=== PATIENT | male | born 1955 | race Caucasian/White ===

== ENCOUNTER 2021-10-29 12:08 | Emergency (ER) | payer OTHER ==
[~2021-10-29] VITALS: Ht 182.9 cm; Wt 65.5 kg
[2021-10-29 12:24] VITALS: BP 102/60
[2021-10-29] MEDS ORDERED: ONDANSETRON PF 4 MG/2 ML VIAL. IVP ONE ×2 (12:30→14:15)
[2021-10-29] MEDS ORDERED: IV NORMAL SALINE 1,000ML 1,000 ML IV SCH (12:30)
[2021-10-29] MEDS ORDERED: CONTRAST GIVEN. MC PRN (12:30)
[2021-10-29] MEDS ORDERED: IOHEXOL 300 MG/ML 75 ML VIAL. IV ONE (12:30)
[2021-10-29 12:39] LABS: BASO # 0.1 x10^3/uL (0.0-0.2); BASO % 1 % (0-3); EOS % 0 % (0-3); HEMATOCRIT 31.4 % (39.0-53.0); HEMOGLOBIN 10.3 g/dL (13.0-17.5); LYMPH # 0.8 x10^3/uL (1.0-4.8); LYMPH % 6 % (24-48); MEAN CORPUSCULAR HEMOGLOBIN 31 pg (25-35); MEAN CORPUSCULAR HGB CONC 33 g/dL (31-37); MEAN CORPUSCULAR VOLUME 95 fL (79-100); MONO % 7 % (0-9); NEUT # 12.6 x10^3uL (1.8-7.7); NEUT % 87 % (31-73); PLATELET COUNT 524 x10^3/uL (140-400); RED CELL DISTRIBUTION WIDTH 14.5 % (11.5-14.5); WHITE BLOOD COUNT 14.5 x10^3/uL (4.0-11.0)
--- NOTE | 2021-10-29 12:39 | PHYS DOC ---
General Adult EDM: Chief Complaint: ABDOMINAL PAIN HPI: HPI: Patient is a 65-year-old male who presents to the emergency department for umbilical abdominal pain that started this morning. He rates his pain 2 out of 10 and describes it as a cramping pain. Patient reports that he is also experiencing lightheadedness that is worse with position changes and nausea and vomiting. Patient reports that he vomited 2 times today. He was discharged from the [facility] on October 04 for urinary tract infection and was discharged with a Cedeno catheter because he was unable to urinate. Patient reports that the Cedeno catheter was placed on October 01. Patient reports that when they placed his colostomy in 2010 due to his rectal cancer they cut his ureter and he does have a history of urinary retention. Patient reports that his rectal cancer is in remission. He denies any changes in the consistency of his output in his colostomy bag reports that it is decreased than what it normally is but he is reported that he has got decreased appetite. He denies diarrhea or blood in his stools or vomit, dysuria. He denies any chest pain or shortness of breath. Review of Systems: Review of Systems: Respiratory: See HPI Cardiovascular: See HPI GI: See HPI : See HPI Neurologic: See HPI Current Medications: Current Meds: Current Medications Medications (Trade) Dose Ordered Sig/Julian Start Time Stop Time Status Last Admin Dose Admin Ondansetron HCl (Zofran) 4 mg 1X ONCE 10/29/21 12:30 10/29/21 12:31 UNV Sodium Chloride 1,000 ml @ 1,000 mls/hr Q1H 10/29/21 12:30 10/29/21 13:29 UNV Physical Exam: PE: Constitutional: Well developed, well nourished, no acute distress, non-toxic christian earance. [] HENT: Normocephalic, atraumatic, bilateral external ears normal, oropharynx moist, no oral exudates, nose normal. [] Eyes: PERRL, EOMI, conjunctiva normal, no discharge. [] Neck: Normal range of motion, no stridor Cardiovascular:Heart rate regular rhythm, no murmur [] Lungs & Thorax: Bilateral breath sounds clear to auscultation [] Abdomen: Bowel sounds normal, soft, no tenderness, no masses, colostomy bag noted, no signs of infection surrounding stoma, there is a small amount of output in colostomy bag, no abdominal rigidity or guarding, negative Moore sign, no pulsatile masses. [] Skin: Warm, dry, no erythema, no rash. [] Back: No tenderness, normal range of motion Extremities: No tenderness, no cyanosis, no clubbing, ROM intact, no edema. [] Neurologic: Alert and oriented X 3, normal motor function, normal sensory function, no focal deficits noted. [] Psychologic: Affect normal, judgement normal, mood normal. [] Current Patient Data: Labs: Laboratory Tests Test 10/29/21 12:20 White Blood Count 14.5 x10^3/uL Red Blood Count 3.30 x10^6/uL Hemoglobin 10.3 g/dL Hematocrit 31.4 % Mean Corpuscular Volume 95 fL Mean Corpuscular Hemoglobin 31 pg Mean Corpuscular Hemoglobin Concent 33 g/dL Red Cell Distribution Width 14.5 % Platelet Count 524 x10^3/uL Neutrophils (%) (Auto) 87 % Lymphocytes (%) (Auto) 6 % Monocytes (%) (Auto) 7 % Eosinophils (%) (Auto) 0 % Basophils (%) (Auto) 1 % Neutrophils # (Auto) 12.6 x10^3uL Lymphocytes # (Auto) 0.8 x10^3/uL Monocytes # (Auto) 1.0 x10^3/uL Eosinophils # (Auto) 0.0 x10^3/uL Basophils # (Auto) 0.1 x10^3/uL Platelet Estimate Pending Sodium Level 134 mmol/L Potassium Level 4.5 mmol/L Chloride Level 96 mmol/L Carbon Dioxide Level 25 mmol/L Anion Gap 13 Blood Urea Nitrogen 66 mg/dL Creatinine 2.4 mg/dL Estimated GFR (Cockcroft-Gault) 27.5 BUN/Creatinine Ratio 28 Glucose Level 143 mg/dL Calcium Level 9.0 mg/dL Total Bilirubin 0.3 mg/dL Aspartate Amino Transf (AST/SGOT) 17 U/L Alanine Aminotransferase (ALT/SGPT) 27 U/L Alkaline Phosphatase 64 U/L Troponin I High Sensitivity 10 ng/L Total Protein 6.2 g/dL Albumin 2.4 g/dL Albumin/Globulin Ratio 0.6 Lipase 36 U/L Current Medications Medications (Trade) Dose Ordered Sig/Julian Route PRN Reason Start Time Stop Time Status Last Admin Dose Admin Sodium Chloride 1,000 ml @ 1,000 mls/hr Q1H IV 10/29/21 12:30 10/29/21 13:29 DC 10/29/21 12:36 Ondansetron HCl (Zofran) 4 mg 1X ONCE IVP 10/29/21 12:30 10/29/21 12:31 DC Iohexol (Omnipaque 300 Mg/ml) 75 ml 1X ONCE IV 10/29/21 12:30 10/29/21 12:31 DC 10/29/21 12:49 Info (Do NOT chart on this entry -- for MONITORING) 1 each PRN DAILY PRN MC SEE COMMENTS 10/29/21 12:30 10/31/21 12:29 EKG: EKG: [] EKG performed by ER staff at 1231 shows sinus tachycardia with a rate of 115, QTC is 444, no STEMI read by Dr. Chen at 1235. Radiology/Procedures: Radiology/Procedures: []PROCEDURE: CT ANGIO CHEST ABD PELVIS CTA CHEST_ABDOMEN_AND PELVIS History: Umbilical pain, history of colostomy, rectal cancer, hernia, hypotension. Comparison: None. Technique: CT angiogram of the chest, abdomen and pelvis with intravenous contrast. 3-D postprocessing performed with coronal, sagittal and rotating MIPS Findings: The thoracic aorta is normal in caliber measuring 3.1 cm at the proximal ascending. Normal three-vessel morphology. There is a linear filling defect in the left subclavian artery just proximal to passing over the first rib which causes approximately 50 percent stenosis (axial image 21, coronal 27). Mild atherosclerotic calcification in the aortic arch. No aortic dissection or aneurysm. The abdominal aorta is normal in caliber measuring 2.2 cm at the hiatus. Patent origins of the celiac, superior mesenteric, renal arteries and inferior mesenteric artery. The bilateral and common iliac arteries are patent. There is moderate atherosclerosis of the bilateral common iliac arteries and left external iliac artery. Bilateral common femoral, deep and superficial femoral arteries are patent. Thyroid and mediastinum are within normal limits. The heart size is normal. Trace pericardial fluid. Thickening of the distal esophagus with small sliding hiatal hernia. The central airways are patent. There are moderate to severe emphysematous changes with large right greater than left apical blebs. Bilateral peripheral groundglass opacities. Right lower lobe pulmonary nodule measuring 1.2 cm x 0.7 cm. No pleural effusion or pneumothorax. Multiple subcentimeter hypodensities in liver too small to characterize. Gallbladder is unremarkable. The pancreas, spleen and adrenal glands are unremarkable. There is right renal atrophy. Bilateral renal cysts. No hydronephrosis. The bladder is decompressed by Cedeno catheter. Small hiatal hernia as above. The proximal small bowel is unremarkable. There is a left lower quadrant peristomal hernia with a focally dilated small bowel loop. No evidence of small bowel obstruction. There is mild gaseous distention of the ascending and transverse colon. Relatively decompressed descending and sigmoid colon with a left midabdomen end colostomy. Rectal pouch is present. There is soft tissue thickening in the presacral space, likely posttreatment changes. The soft tissues are unremarkable. There are healed right rib fractures. Flowing osteophytes in the thoracic spine. Multilevel thoracolumbar degenerative changes without acute osseous abnormality identified. Impression: 1. No aortic aneurysm, dissection or hematoma. 2. Left distal subclavian artery filling defect may represent focal dissection with approximately 50 percent stenosis. 3. Right lower lobe pulmonary nodule measuring 1.2 x 0.7 cm. Correlation with tissue be made with prior imaging. Cannot exclude metastatic disease and history of prior malignancy. Recommend follow-up per oncology protocol. 4. Thickening of the distal esophagus with small sliding hiatal hernia. Correlate for esophagitis. 5. Peristomal hernia of small bowel without evidence of obstruction. 6. Multiple hypodensities in liver too small to characterize. Recommend correlation with prior examinations. Additionally suspect posttreatment changes in the presacral space status post partial colectomy. Recommend correlation with prior imaging. 7. Moderate to severe emphysematous change. ------ Exposure: One or more of the following individualized dose reduction techniques were utilized for this examination: 1. Automated exposure control 2. Adjustment of the mA and/or kV according to patient size 3. Use of iterative reconstruction technique. Electronically signed by: Celso Sanford MD (10/29/2021 1:46 PM) [id number] DICTATED AND SIGNED BY: CELSO SANFORD MD DATE: 10/29/21 1347 CC: ANTONY BLACK APRN; NON,STAFF ~MTH0 0 Heart Score: C/O Chest Pain: No Risk Factors: Risk Factors: DM, Current or recent (<one month) smoker, HTN, HLP, family history of CAD, obesity. Risk Scores: Score 0 - 3: 2.5% MACE over next 6 weeks - Discharge Home Score 4 - 6: 20.3% MACE over next 6 weeks - Admit for Clinical Observation Score 7 - 10: 72.7% MACE over next 6 weeks - Early Invasive Strategies Course & Med Decision Making: Course & Med Decision Making Pertinent Labs and Imaging studies reviewed. (See chart for details) Patient presents to the emergency department for multiple complaints. Patient is reporting umbilical abdominal pain with nausea and vomiting that started this morning. Patient does have a history of rectal cancer with a colostomy bag. He also has a history of urinary tract infections and has a Cedeno catheter in place due to urinary retention. Work-up in the ER consisted of blood work, ur inalysis and CT imaging of abdomen and pelvis. Patient is noted to have a lightheadedness with position changes, likely orthostatic hypotension, EKG and troponin was ordered, patient treated with 2 L of IV fluids. He was also given nausea medication.Patient is tachycardic and hypotensive c/o abominal pain-ct angio chest ordered. Patient notified MATERIAL LISTER that he had decreased urine output today in his catheter, UA was obtained, bladder scanned and patient had no residual urine. Leukocytosis noted with a white blood cell count of 14.5. Patient's hemoglobin is 10.3. Patient does have elevated BUN and creatinine with a creatinine of 2.4. Negative troponin, negative lipase. Patient does not report a history of renal failure. CT scan of chest abdomen pelvis does not show any aortic dissection, patient does have a filling defect of his left subclavian artery with 50% stenosis which the radiologist read as a possible dissection that cannot be excluded. Patient does also have pulmonary nodules which may be meta stasis. He does have hernia without any obstruction. I discussed these findings with Dr. Bowen who agreed to admit the patient at [facility] with consultation to vascular surgery. Patient notified of results and was involved in treatment plan he is agreeable at this time. 1408. Mickey Disclaimer: Mickey Disclaimer: This electronic medical record was generated, in whole or in part, using a voice recognition dictation system. Departure Departure: Impression: Primary Impression: CHIDI (acute kidney injury) Additional Impressions: Intractable nausea and vomiting Subclavian arterial stenosis Disposition: SHORT TERM HOSPITAL Admitting Physician: Saima Bowen Condition: STABLE ANTONY BLACK APRN Oct 29, 2021 12:39
--- NOTE | 2021-10-29 12:40 | EKG ---
[address] [address] Test Date: 2021-10-29 Test Time: 12:31:01 Pat Name: LYNN LEIJA Department: Room: Gender: M Technical Communicator: LUZ : 1955 Requested By: ANTONY BLACK Order Number: [id number] Reading MD: Macario Kumar MD Measurements Intervals [place] Rate: 115 P: 24 MI: 142 QRS: 67 QRSD: 88 T: 47 QT: 320 QTc: 444 Interpretive Statements SINUS TACHYCARDIA Electronically Signed On 11-04-2021 11:51:48 SAFETY REPRESENTATIVE by Macario Kumar MD
[2021-10-29 12:44] LABS: CREATININE 2.4 mg/dL (0.7-1.3); GFR 27.5; POTASSIUM 4.5 mmol/L (3.5-5.1)
[2021-10-29 12:50] LABS: ALBUMIN 2.4 g/dL (3.4-5.0); ALBUMIN/GLOBULIN RATIO 0.6 (1.0-1.7); TOTAL BILIRUBIN 0.3 mg/dL (0.2-1.0); TOTAL PROTEIN 6.2 g/dL (6.4-8.2)
--- NOTE | 2021-10-29 13:49 | RAD ---
CTA CHEST_ABDOMEN_AND PELVIS History: Umbilical pain, history of colostomy, rectal cancer, hernia, hypotension. Comparison: None. Technique: CT angiogram of the chest, abdomen and pelvis with intravenous contrast. 3-D postprocessin g performed with coronal, sagittal and rotating MIPS Findings: The thoracic aorta is normal in caliber measuring 3.1 cm at the proximal ascending. Normal three-vess el morphology. There is a linear filling defect in the left subclavian artery just proximal to passin g over the first rib which causes approximately 50 percent stenosis (axial image 21, coronal 27). Mil d atherosclerotic calcification in the aortic arch. No aortic dissection or aneurysm. The abdominal aorta is normal in caliber measuring 2.2 cm at the hiatus. Patent origins of the celiac , superior mesenteric, renal arteries and inferior mesenteric artery. The bilateral and common iliac arteries are patent. There is moderate atherosclerosis of the bilateral common iliac arteries and lef t external iliac artery. Bilateral common femoral, deep and superficial femoral arteries are patent. Thyroid and mediastinum are within normal limits. The heart size is normal. Trace pericardial fluid. Thickening of the distal esophagus with small sliding hiatal hernia. The central airways are patent. There are moderate to severe emphysematous changes with large right g reater than left apical blebs. Bilateral peripheral groundglass opacities. Right lower lobe pulmonary nodule measuring 1.2 cm x 0.7 cm. No pleural effusion or pneumothorax. Multiple subcentimeter hypodensities in liver too small to characterize. Gallbladder is unremarkable. The pancreas, spleen and adrenal glands are unremarkable. There is right renal atrophy. Bilateral re nal cysts. No hydronephrosis. The bladder is decompressed by Cedeno catheter. Small hiatal hernia as above. The proximal small bowel is unremarkable. There is a left lower quadran t peristomal hernia with a focally dilated small bowel loop. No evidence of small bowel obstruction. There is mild gaseous distention of the ascending and transverse colon. Relatively decompressed desce nding and sigmoid colon with a left midabdomen end colostomy. Rectal pouch is present. There is soft tissue thickening in the presacral space, likely posttreatment changes. The soft tissues are unremarkable. There are healed right rib fractures. Flowing osteophytes in the t horacic spine. Multilevel thoracolumbar degenerative changes without acute osseous abnormality identi fied. Impression: 1. No aortic aneurysm, dissection or hematoma. 2. Left distal subclavian artery filling defect may represent focal dissection with approximately 50 percent stenosis. 3. Right lower lobe pulmonary nodule measuring 1.2 x 0.7 cm. Correlation with tissue be made with pr ior imaging. Cannot exclude metastatic disease and history of prior malignancy. Recommend follow-up p er oncology protocol. 4. Thickening of the distal esophagus with small sliding hiatal hernia. Correlate for esophagitis. 5. Peristomal hernia of small bowel without evidence of obstruction. 6. Multiple hypodensities in liver too small to characterize. Recommend correlation with prior exami nations. Additionally suspect posttreatment changes in the presacral space status post partial colect kelley. Recommend correlation with prior imaging. 7. Moderate to severe emphysematous change. ------ Exposure: One or more of the following individualized dose reduction techniques were utilized for thi s examination: 1. Automated exposure control 2. Adjustment of the mA and/or kV according to patient size 3. Use of iterative reconstruction technique. Electronically signed by: Celso Fry MD (10/29/2021 1:46 PM) [id number]
[2021-10-29 14:15] LABS: % BANDS 4 % (0-9); % LYMPHS 5 % (24-48); % METAS 1 % (0-0); % MONOS 1 % (0-10); % SEGS 89 % (35-66)
[2021-10-29 14:18] LABS: PLT ESTIMATE INCREASED (ADEQUATE)
[2021-10-29 14:18] LABS: AMORPHOUS SEDIMENT,UR PRESENT /HPF; BACTERIA,URINE 0 /HPF (0-FEW); CLARITY,URINE TURBID; COLOR,URINE YELLOW; GLUCOSE,URINE NEG (NEG); NITRITE,URINE NEG (NEG); RBC,URINE 0 /HPF (0-2); UROBILINOGEN,URINE 0.2 mg/dL (0.2 mg/dL); WBC,URINE 0 /HPF (0-4)
== END 2021-10-29 16:41 | disposition short-term general hospital (02) ==
LOC: ER 12:08
DX: N17.9 Acute kidney failure, unspecified (principal); I70.90 Unspecified atherosclerosis; Z20.822 Contact with and (suspected) exposure to COVID-19; Z93.3 Colostomy status
CPT/HCPCS: 36415; 71275; 74174; 74175; 80053; 81001; 83690; 84484; 85007; 85025; 87086; 87426; 93005; 96361; 96374; 99285; C9803; J2405; J7030; Q9967; U0003; 87077; 87186